=== PATIENT | male | born 2000 | race Caucasian/White ===

== ENCOUNTER → 2024-08-29 | Outpatient (CLI) | payer OTHER | LOC: M RAD 07:22 | PROVIDERS: ATTEND Student in an Organized Health Care Education/Training Program | DX: R22.0 Localized swelling, mass and lump, head (principal) ==

== ENCOUNTER 2024-12-02 10:19 | Day surgery (SDC) | payer OTHER ==
[~2024-12-02] VITALS: Ht 167.6 cm; Wt 66.2 kg
[~2024-12-02 10:19] MED LIST: BUPR-597 PO
[2024-12-02] MEDS ORDERED: MIDAZOLAM INJ 2MG/2ML VIAL As Ordered ONE (10:22)
[2024-12-02] MEDS ORDERED: fentaNYL 100 MCG/2 ML INJECTION As Ordered ONE (10:23)
[2024-12-02] MEDS ORDERED: LIDOCAINE 2% 100MG/5ML SDV (FOR ANES.) As Ordered ONE (10:23)
[2024-12-02] MEDS ORDERED: ACETAMINOPHEN 1000MG/100ML IV BAG As Ordered ONE (10:23)
[2024-12-02] MEDS ORDERED: propofoL 200 MG/20 ML VIAL As Ordered ONE (10:23)
[2024-12-02] MEDS ORDERED: ONDANSETRON 4MG 2ML VIAL As Ordered ONE (10:23)
[2024-12-02 11:06] LABS: HEMATOCRIT 46.5 % (42.0-52.0); HEMOGLOBIN 16.3 g/dl (13.5-17.5); MEAN CORPUSCULAR HEMOGLOBIN 29.1 pg (27.0-33.0); MEAN CORPUSCULAR HGB CONC 35.1 g/dl (32.0-36.5); MEAN CORPUSCULAR VOLUME 82.9 fl (80.0-96.0); PLATELET COUNT, AUTOMATED 251 10^3/uL (150-450); RED BLOOD COUNT 5.61 10^6/uL (4.30-6.10); WHITE BLOOD COUNT 5.3 10^3/uL (4.0-10.0)
[2024-12-02 11:44] LABS: BLOOD UREA NITROGEN 9 MG/DL (9-23); CALCIUM LEVEL 9.4 MG/DL (8.5-10.1); CARBON DIOXIDE LEVEL 30 MMOL/L (20-31); CHLORIDE LEVEL 105 MMOL/L (98-107); CREATININE FOR GFR 0.88 MG/DL (0.70-1.30); GLOMERULAR FILTRATION RATE > 60.0 (>60); GLUCOSE, FASTING 81 MG/DL (60-100); POTASSIUM SERUM 3.7 MMOL/L (3.5-5.1); SODIUM LEVEL 143 MMOL/L (136-145)
[2024-12-02] MEDS ORDERED: ROCURONIUM BROMIDE 50MG/5ML VIAL As Ordered ONE (12:09)
[2024-12-02] MEDS: ceFAZolin SOD 2 GM in IV 1 EA IV ONE (12:14)
[2024-12-02] MEDS: POVIDONE-IODINE 5% OPHTH PREP SOL 30ML As Ordered ONE (12:20)
[2024-12-02] MEDS ORDERED: SUGAMMADEX SODIUM 500 MG/5 ML VIAL (BRIDION) As Ordered ONE (12:23)
[2024-12-02] MEDS: LIDOCAINE 2% W/EPINEPHRINE 20ML VIAL **PRES FREE As Ordered ONE (13:32)
[2024-12-02] MEDS ORDERED: oxyCODONE 5MG TAB PO PRN (13:40)
[2024-12-02] MEDS ORDERED: ONDANSETRON 4MG 2ML VIAL IV PRN (13:40)
[2024-12-02] MEDS ORDERED: NS (Normal Saline) 0.9% 1,000 ML IV SCH (13:40)
[2024-12-02] MEDS ORDERED: fentaNYL 100 MCG/2 ML INJECTION IV PRN (13:40)
[2024-12-02] MEDS ORDERED: HYDROMORPHONE HCL 0.5 MG/ 0.5 ML SYRINGE IV PRN (13:40)
[2024-12-02] MEDS: BACITRACIN OINTMENT 30GM TUBE As Ordered ONE (13:55)
[2024-12-02 14:42] VITALS: BP 113/74; TEMP 97.8; O2SAT 99
== END 2024-12-02 15:07 | disposition home or self-care (01) ==
LOC: M SDC 10:19
PROVIDERS: ATTEND Plastic Surgery Surgery of the Hand
DX: L90.5 Scar conditions and fibrosis of skin (principal); F32.A Depression, unspecified; Z79.899 Other long term (current) drug therapy
CPT/HCPCS: 11442; 12051; 36415; 80048; 85027; 88305; J0131; J0690; J1100; J2250; J2405; J3010

== ENCOUNTER → 2025-02-13 | Outpatient (CLI) | payer OTHER | LOC: M RAD 12:37 | PROVIDERS: ATTEND Physician Assistant | DX: D17.0 Benign lipomatous neoplasm of skin and subcutaneous tissue of head, face and neck (principal); L91.0 Hypertrophic scar ==

== ENCOUNTER 2025-03-01 03:45 | Emergency (ER) | payer OTHER ==
[~2025-03-01] VITALS: Ht 165.1 cm; Wt 63.7 kg
[~2025-03-01 03:45] MED LIST changes: -BUPR-597 PO; +BUPR-766 PO
[2025-03-01 04:46] LABS: HEMATOCRIT 45.8 % (42.0-52.0); HEMOGLOBIN 15.7 g/dl (13.5-17.5); MEAN CORPUSCULAR HEMOGLOBIN 28.9 pg (27.0-33.0); MEAN CORPUSCULAR HGB CONC 34.3 g/dl (32.0-36.5); MEAN CORPUSCULAR VOLUME 84.3 fl (80.0-96.0); PLATELET COUNT, AUTOMATED 265 10^3/uL (150-450); RED BLOOD COUNT 5.43 10^6/uL (4.30-6.10); WHITE BLOOD COUNT 12.7 10^3/uL (4.0-10.0)
[2025-03-01 05:09] LABS: ETHYL ALCOHOL (ETHANOL) 0.132 % (0.000-0.010)
[2025-03-01 05:11] LABS: ALBUMIN 4.5 G/DL (3.2-5.2); ALKALINE PHOSPHATASE 80 U/L (40-129); ALT/SGPT 25 U/L (7.0-40); AST/SGOT 17 U/L (<34); BILIRUBIN,DIRECT 0.1 MG/DL (<0.4); BILIRUBIN,TOTAL 0.3 MG/DL (0.3-1.2); BLOOD UREA NITROGEN 13 MG/DL (9-23); CALCIUM LEVEL 9.1 MG/DL (8.5-10.1); CARBON DIOXIDE LEVEL 25 MMOL/L (20-31); CHLORIDE LEVEL 105 MMOL/L (98-107); CREATININE FOR GFR 0.75 MG/DL (0.70-1.30); GLOMERULAR FILTRATION RATE > 90.0 (>60); GLUCOSE, FASTING 115 MG/DL (60-100); SALICYLATE LEVEL < 3.0 MG/DL (<30); SODIUM LEVEL 142 MMOL/L (136-145); TOTAL PROTEIN 7.3 G/DL (5.7-8.2)
[2025-03-01 05:13] LABS: THYROID STIMULATING HORMONE 1.491 uIU/ML (0.55-4.78)
[2025-03-01 10:30] VITALS: BP 130/78; TEMP 98.1; O2SAT 99
== END 2025-03-01 10:30 | disposition home or self-care (01) ==
LOC: M ED 03:45
DX: F32.A Depression, unspecified (principal); F10.10 Alcohol abuse, uncomplicated; Z79.899 Other long term (current) drug therapy

== ENCOUNTER → 2025-08-11 | Outpatient (CLI) | payer OTHER ==
[~2025-08-11] MED LIST changes: +FINA1TAB4 PO; +MINO2.5T PO
== END ==
LOC: M RAD 15:49
PROVIDERS: ATTEND Physician Assistant
DX: L91.0 Hypertrophic scar (principal)

== ENCOUNTER → 2025-08-20 | Day surgery (SDC) | payer OTHER ==
[~2025-08-20] VITALS: Ht 165.1 cm; Wt 69.4 kg
== END | disposition home or self-care (01) ==
LOC: M SDC 06:12
PROVIDERS: ATTEND Plastic Surgery Surgery of the Hand
DX: L91.0 Hypertrophic scar (principal); Z53.8 Procedure and treatment not carried out for other reasons

== ENCOUNTER 2025-09-08 06:19 | Day surgery (SDC) | payer OTHER ==
[~2025-09-08] VITALS: Ht 165.1 cm; Wt 68.0 kg
[2025-09-08] MEDS ORDERED: dexmedeTOMIDine (4 MCG/ML) 200 MCG/50 ML BTL As Ordered ONE (06:54)
[2025-09-08] MEDS ORDERED: ONDANSETRON 4MG/2ML VIAL As Ordered ONE (06:54)
[2025-09-08] MEDS ORDERED: dexAMETHasone 4 MG/ML 1 ML VIAL As Ordered ONE (06:54)
[2025-09-08] MEDS ORDERED: LIDOCAINE 2% 100 MG/5 ML SDV (FOR ANES.) As Ordered ONE (06:54)
[2025-09-08 06:59] LABS: PLATELET COUNT, AUTOMATED 268 10^3/uL (150-450)
[2025-09-08] MEDS ORDERED: MIDAZOLAM INJ 2 MG/2 ML VIAL As Ordered ONE (07:00)
[2025-09-08 07:17] LABS: CALCIUM LEVEL 9.7 MG/DL (8.5-10.1); CARBON DIOXIDE LEVEL 30 MMOL/L (20-31); CHLORIDE LEVEL 104 MMOL/L (98-107); CREATININE FOR GFR 0.81 MG/DL (0.70-1.30); GLOMERULAR FILTRATION RATE > 90.0 (>60); POTASSIUM SERUM 4.3 MMOL/L (3.5-5.1); SODIUM LEVEL 143 MMOL/L (136-145)
[2025-09-08] MEDS ORDERED: ceFAZolin SOD 2 GM IV ONCE IV ONE (07:25)
[2025-09-08] MEDS ORDERED: ACETAMINOPHEN 1000MG/100ML IV BAG As Ordered ONE (07:44)
[2025-09-08] MEDS: LIDOCAINE 2% W/EPINEPHrine 20 ML VIAL **PRES FREE As Ordered ONE (07:54)
[2025-09-08] MEDS ORDERED: MORPHINE 4 MG/ML 1 ML VIAL IV PRN (09:45)
[2025-09-08] MEDS ORDERED: HYDROMORPHONE HCL 0.5 MG/0.5 ML SYRINGE IV PRN (09:45)
[2025-09-08] MEDS: ONDANSETRON 4MG/2ML VIAL IV ONE (10:54)
[2025-09-08 11:50] VITALS: BP 143/90; TEMP 97.6; O2SAT 100
[2025-09-08] MEDS: ONDANSETRON 4MG ORAL DISINTEGRATING TAB PO ONE (12:00)
== END 2025-09-08 12:10 | disposition home or self-care (01) ==
LOC: M SDC 06:19
PROVIDERS: ATTEND Plastic Surgery Surgery of the Hand
DX: L91.0 Hypertrophic scar (principal); L90.5 Scar conditions and fibrosis of skin
CPT/HCPCS: 11443; 12052; 36415; 80048; 85027; 88302; J0131; J0688; J1100; J2250; J2405; J3010